=== PATIENT | male | born 1985 | race Caucasian/White ===

== ENCOUNTER 2018-08-14 14:54 | Emergency (ER) | payer MEDICAID ==
[~2018-08-14] VITALS: Ht 167.6 cm; Wt 103.2 kg
[2018-08-14 14:58] VITALS: BP 134/80; PULSE 136; RESP 20; Ht 167.6 cm; Wt 103.2 kg
[2018-08-14] MEDS ORDERED: OSLT75C PO (16:36)
--- NOTE | 2018-08-14 16:36 | ERD ---
ER Documentation Chief Complaint Chief Complaint Complains of a fever since today HPI Is a 33-year-old male who presents for evaluation of 3 days of flulike illness. Patient is otherwise healthy, his girlfriend, tested positive for influenza B, she is currently being treated. He endorses generalized malaise, body aches, chills, he denies nausea vomiting. He denies chest pain or shortness of breath, he does have nausea and dizziness, ROS All systems reviewed and are negative except as per history of present illness. Medications Home Meds Active Scripts Oseltamivir Phosphate* (Tamiflu*) 75 Mg Capsule, 75 MG PO BID for 5 Days, CAP Prov:APOLONIA CORONADO MD 08/14/18 PMhx/Soc History of Surgery: No Anesthesia Reaction: No Hx Neurological Disorder: No Hx Respiratory Disorders: No Hx Cardiac Disorders: No Hx Psychiatric Problems: No Hx Miscellaneous Medical Probl: No Hx Alcohol Use: No Hx Substance Use: No Hx Tobacco Use: No Smoking Status: Never smoker Physical Exam Vitals Vital Signs Date Temp Pulse Resp B/P (MAP) Pulse Ox O2 O2 Flow FiO2 Time Delivery Rate 08/14/18 98.8 136 20 134/80 96 14:58 (98) Physical Exam Const: No acute distress Head: Atraumatic Eyes: Normal Conjunctiva ENT: Normal External Ears, Nose and Mouth. Neck: Full range of motion. No meningismus. Resp: Clear to auscultation bilaterally Cardio: Tachycardic, regular rhythm., no murmurs Abd: Soft, non tender, non distended. Normal bowel sounds Skin: No petechiae or rashes Back: No midline or flank tenderness Ext: No cyanosis, or edema Neur: Awake and alert Psych: Normal Mood and Affect Procedures/MDM 33-year-old healthy male presents with influenza-like illness. Patient is endocrine in no respiratory distress, I do not suspect serious bacterial infection such as meningitis or pneumonia. He has no evidence of HEENT infection such as peritonsillar abscess, RPA, or epiglottitis. I offered treating empirically for influenza with Tamiflu, patient was agreeable to this, at discharge she was in no acute distress. Departure Diagnosis: Primary Impression: Influenza-like illness Condition: Stable APOLONIA CORONADO MD Aug 14, 2018 16:36
== END 2018-08-14 17:09 | disposition home or self-care (01) ==
LOC: E/R 14:54
DX: J11.1 Influenza due to unidentified influenza virus with other respiratory manifestations (principal)
CPT/HCPCS: 99283